=== PATIENT | male | born 2000 | race Caucasian/White ===

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

== ENCOUNTER 2020-04-07 13:00 | Emergency (ER) | payer MEDICAID ==
[~2020-04-07] VITALS: Ht 175.2 cm; Wt 68.0 kg
--- OUTSIDE RECORDS SUMMARY | 2020-04-07 13:05 | XMS REPORT | Continuity of Care Document ---
Author Author [facility] Organization [facility] Address Unknown Phone Unavailable Care Team Providers Care Care Partner Name Role Phone JE GIRON DO PCP Insurance Providers Payer Name Policy Number Subscriber Name Relationship [facility] [id number] Etelvina Hernandez 18 Self / S [place] As Patient Advance Directives Directive Response Recorded Date/Time Advance Directives No 02/09/15 6:00pm Organ Donor No 02/09/15 6:00pm Resuscitation Status Full Code 02/09/15 6:00pm Chief Complaint and Reason for Visit Chief Complaint LACERATION AND FOREIGN BODY R FOOT Reason for Visit Foreign body in right foot Laceration of right foot Problems Medical Problems Problem Onset Date Status Foreign body in right foot Unknown Active Laceration of right foot Unknown Active Medications Medication Dose Route Sig Days/Qty Instructions Order Date Disc ontinued Date Status Levofloxacin 500 Mg PO DAILY 10 Days 02/10/15 Ac tive Social History Social History Problem Response Recorded Date/Sergio e Alcohol Use Denies Use 02/09/2015 6:00pm Recreational Drug Use No 02/09/2015 6:00pm Recent Foreign Travel No 02/09/2015 6:00pm Recent Infectious Disease Exposure No 02/09 6:00pm Hospitalization with Isolation Denies 5 2:50pm Smoking Status Never a Smoker 02/09/2015 6:00pm Do you dip or chew tobacco? No 02/09/2015 6 :00pm Query Response Start Date Stop Date Smoking Status Never a Smoker Hospital Discharge Instructions No hospital discharge instructions. Plan of Care Discharge Date 02/10/15 1:05pm Disposition 30 STILL A PATIENT Instructions/Education Provided Laceration (DC) Forms Provided PDI Surgical Prescriptions See Medications Section Referrals (Unspecified) Today Functional Status No functional status results. Allergies, Adverse Reactions, Alerts Allergen Type Severity Reaction Status Last Updated No Known Drug Allergies Active 0 02/09/15 Immunizations No immunization records. Vital Signs Acute Vital Signs Vital Response Date/Time Temperature (Fahrenheit) 98.1 degrees F (97.6 - 99.5) Temperature (Calculated Celsius) 36.18046 degrees C (36.4 - 37.5) Temperature Source Temporal Pulse Rate (Adolescent 12-19yrs) 76 bpm (56 - 106) O2 Sat by Pulse Oximetry 98 % (88 - 100) Respiratory Rate (Adolescent 12-19yrs) 16 bpm (15 - 20) Blood Pressure / Blood Pressure Systolic (Adolescent 12-19yrs) 102 mm Hg ( 115 - 120) Pain Pain Intensity 5 Height (Feet) 5 feet Height (Inches) 2.00 inches Height (Calculated Centimeters) 157.137887 cm Weight (Pounds) 105 pounds Weight (Calculated Grams) 92465.199 gm Weight (Calculated Kilograms) 47.504016 kilograms Calculated BMI 19.20 Results Laboratory Results Test Name Result Units Flags Reference Collection Date/Time Result Date/Time Comments White Blood Count 5.8 10^3/uL 4.3-11.0 02/09/2015 5:23pm 11/2014 5:30pm Red Blood Count 3.10 10^6/uL L 4.30-5.45 02/09/2015 5:23pm 05/0 11/2014 5:30pm Hemoglobin 9.1 G/DL L 12.4-17.1 02/09/2015 5:23pm 5 5:30pm Hematocrit 27 % L 37-52 02/09/2015 5:23pm 02/09/2015 5:30pm Mean Corpuscular Volume 87 FL 77-95 02/09/2015 5:23p m 02/09/2015 5:30pm Mean Corpuscular Hemoglobin 29 PG 25-34 02/09/2015 5 :23pm 02/09/2015 5:30pm Mean Corpuscular Hemoglobin Concent 34 G/DL 32-3 6 02/09/2015 5:23pm 02/09/2015 5:30pm Red Cell Distribution Width 12.3 % 10.0-14.5 5:23pm 02/09/2015 5:30pm Platelet Count 158 10^3/uL 130-400 02/09/2015 5:23pm 015 5:30pm Mean Platelet Volume 10.6 FL H 7.4-10.4 02/09/2015 5:23pm 02/09/2015 5:30pm Neutrophils (%) (Auto) 52 % 42-75 02/09/2015 5:23pm 02/09/2015 5:30pm Lymphocytes (%) (Auto) 41 % 12-44 02/09/2015 5:23pm 02/09/2015 5:30pm Monocytes (%) (Auto) 6 % 0-12 02/09/2015 5:23pm 0 02/09/2015 5:30pm Eosinophils (%) (Auto) 1 % 0-10 02/09/2015 5:23pm 02/09/2015 5:30pm Basophils (%) (Auto) 0 % 0-10 02/09/2015 5:23pm 0 02/09/2015 5:30pm Neutrophils # (Auto) 3.0 X 10^3 1.8-7.8 02/09/2015 5:23pm 0 02/09/2015 5:30pm Lymphocytes # (Auto) 2.4 X 10^3 1.0-4.0 02/09/2015 5:23pm 0 02/09/2015 5:30pm Monocytes # (Auto) 0.3 X 10^3 0.0-1.0 02/09/2015 5:23pm 11/2014 5:30pm Eosinophils # (Auto) 0.1 10^3/uL 0.0-0.3 02/09/2015 5:23pm 0 02/09/2015 5:30pm Basophils # (Auto) 0.0 10^3/uL 0.0-0.1 02/09/2015 5:23pm 11/2014 5:30pm Procedures Procedure Status Date Provider(s) Repair of laceration completed 02/09/15 MANDY DUMONT MD Encounters Encounter Location Date/Time Discharged Inpatient [facility] 02/09/15 5:15pm Recent Diagnosis Foreign body in right foot Laceration of right foot
--- OUTSIDE RECORDS SUMMARY | 2020-04-07 13:05 | XMS REPORT ---
Author Author Rosendo Dickerson Doctor Organization [facility] Address Unknown Phone Unavailable Care Team Providers Care Electric Hoist Operator Name Role Phone Migration, Doctor Unavailable Unavailable PROBLEMS Type Condition ICD9-CM Code [id number] Code Onset Dates Condition S tatus SNOMED Code Problem Impacted cerumen 380.4 Active 180 95492 Problem Allergic rhinitis due to pollen 477.0 Active 20323500 Problem Routine or child health check V20.2 Active 013400820 ALLERGIES No Information ENCOUNTERS Encounter Location Date Diagnosis [place] [address] [place] [phone] 14 Jan, 2015 [place] [address] [address] [place] [id number] [place] [phone] Jan, [place] [address] [address] [place] [id number] [place] [phone] Jan, IMMUNIZATIONS No Known Immunizations SOCIAL HISTORY Never Assessed REASON FOR VISIT [place] [place] VITAL SIGNS MEDICATIONS Unknown Medications RESULTS No Results PROCEDURES No Known procedures INSTRUCTIONS MEDICATIONS ADMINISTERED No Known Medications
--- OUTSIDE RECORDS SUMMARY | 2020-04-07 13:05 | XMS REPORT | Continuity of Care Document ---
Author Author [facility] Organization [facility] Address Unknown Phone Unavailable Care Team Providers Care Order Expediter Name Role Phone JE GIRON DO PCP Insurance Providers Payer Name Policy Number [facility]scriber [facility] [id number] Etelvina Hernandez 18 Self / S [place] As Patient Advance Directives Directive Response Recorded Date/Time Advance Directives No 02/09/15 6:00pm Organ Donor No 02/09/15 6:00pm Resuscitation Status Full Code 02/09/15 6:00pm Problems Medical Problems Problem Onset Date Status [...] No hospital discharge instructions. Plan of Care No plan of care. Functional Status No functional status results. Allergies, Adverse Reactions, Alerts Allergen Type Severity Reaction Status Last Updated No Known Drug Allergies Active 0 02/09/15 Immunizations No immunization records. Vital Signs Acute Vital Signs Vital Response Date/Time Temperature (Fahrenheit) 98.1 degrees F (97.6 - 99.5) Temperature (Calculated Celsius) 36.88374 degrees C (36.4 - 37.5) Temperature Source Temporal Pulse Rate (Adolescent 12-19yrs) 76 bpm (56 - 106) O2 Sat by Pulse Oximetry 98 % (88 - 100) Respiratory Rate (Adolescent 12-19yrs) 16 bpm (15 - 20) Blood Pressure / Blood Pressure Systolic (Adolescent 12-yrs) 102 mm Hg ( 115 - 120) Pain Pain Intensity 5 Height (Feet) 5 feet Height (Inches) 2.00 inches Height (Calculated Centimeters) 157.715968 cm Weight (Pounds) 105 pounds Weight (Calculated Grams) 64804.199 gm Weight (Calculated Kilograms) 47.098973 kilograms Calculated BMI 19.20 Results Laboratory Results [...] MANDY DUMONT MD Encounters Encounter Location Date/Time Departed Emergency Room Via [facility] 02/09 4:47pm Recent Diagnosis
--- OUTSIDE RECORDS SUMMARY | 2020-04-07 13:05 | XMS REPORT ---
Author Author Rosendo Dickerson Doctor Organization [facility] Address Unknown Phone Unavailable Care Team Providers Care Tare Worker Name Role Phone Migration, Doctor Unavailable Unavailable PROBLEMS Type Condition ICD9-CM Code [id number] Code Onset Dates Condition S tatus SNOMED Code Problem Impacted cerumen 380.4 Active 180 97039 Problem Allergic rhinitis due to pollen 477.0 Active 07987188 Problem Routine or child health check V20.2 Active 288914220 ALLERGIES No Information ENCOUNTERS Encounter Location Date Diagnosis [place] [address] [place] [phone] Jan, [place] [address] [address] [place] [phone] Jan, [place] [address] [place] [phone] Jan, IMMUNIZATIONS No Known Immunizations SOCIAL HISTORY Never Assessed REASON FOR VISIT EMR-[facility] PLAN OF CARE VITAL SIGNS MEDICATIONS Medication Instructions Dosage Frequency Start Date End Date Duration S tatus Debrox 6.5 % 3 drop by Otic route 2 times per day for 5 da y(s) Jan, Active Claritin 10 mg 1 tablet by Oral route 1 time per day Jan, Active RESULTS No Results PROCEDURES No Known procedures INSTRUCTIONS MEDICATIONS ADMINISTERED No Known Medications
--- OUTSIDE RECORDS SUMMARY | 2020-04-07 13:06 | XMS REPORT | Continuity of Care Document ---
Author Author [facility] Organization [facility] Address Unknown Phone Unavailable Care Team Providers Care Clinical Pharmacist Name Role Phone JE GIRON DO PCP Insurance Providers Payer Name Policy Number Subscriber Name Relationship [facility] [id number] Etelvina Hernandez 18 Self / S [place] As Patient Advance Directives Directive Response Recorded Date/Time Advance Directives No 08/09/16 8:47pm Organ Donor No 08/09/16 8:47pm Resuscitation Status Full Code 08/09/16 8:47pm Chief Complaint and Reason for Visit Chief Complaint Upper Extremity Reason for Visit [id number] Problems Active Problems Medical Problem Onset Date Status Foreign body in right foot Unknown Acute Fracture of thumb, right, closed Unknown Acute Laceration of right foot Unknown Acute Medications Current Home Medications Medication Dose Units Route Directions Days/Qty Instructions Star t Date Levofloxacin 500 Mg 500 Mg Oral Daily 10 Days 12/23 Hydrocodone/Acetaminophen 1 Each 1 Each Oral Every 4HRS as n eeded for Pain 20 08/09/16 Social History Social History Problem Response Recorded Date/Sergio e Alcohol Use Denies Use 05/10/2015 7:45am Recreational Drug Use No 05/10/2015 7:45am Recent Foreign Travel No 08/09/2016 8:47pm Recent Infectious Disease Exposure No 08/09 8:47pm Hospitalization with Isolation Denies 6 8:47pm Smoking Status Never a Smoker 08/09/2016 8:47pm Do you dip or chew tobacco? No 02/09/2015 6 :00pm Recent Hopitalizations No 08/09/2016 8:47pm Hospitalization with Isolation Denies 6 8:47pm Query Response Start Date Stop Date Smoking Status Never a Smoker Hospital Discharge Instructions No hospital discharge instructions. Plan of Care Discharge Date 08/09/16 10:08pm Disposition 01 HOME, SELF-CARE Condition at Discharge Improved Instructions/Education Provided Splint Care (ED) Thumb Fracture (ED) Forms Provided Local Medical Staff Listing Prescriptions See Medication Section Referrals EASTON SEE MD - JE GIRON DO - Primary Care Physician EJ GIRON DO - Primary Care Physician DARLYN WRIGHT MD - Additional Instructions/Education All discharge instru ctions reviewed with patient and/or family. Voiced understanding. Medications as in instructed. No ibuprofen or Aleve. Elevate the right hand on pillows. Ice pack the next 2-3 days intermittently. Left arm activities only until released by Dr. See. Follow-up with Dr. See as an outpatient in the next 7 days. Call first thing tomorrow morning for appointment time. Return to the emergency department for worsened pain, discoloration, numbness, pain from the splint, or any other concerns. Functional Status No functional status results. Allergies, Adverse Reactions, Alerts No known allergies. Immunizations No immunization records. Vital Signs Acute Vital Signs Vital Response Date/Time Temperature (Fahrenheit) 97.8 degrees F (97.6 - 99.5) 2015 8:47pm Temperature (Calculated Celsius) 36.53637 degrees C (36.4 - 37.5) 08/09/2016 8:47pm Temperature Source Temporal 08/09/2016 8:47pm Pulse Rate (Adolescent 12-19yrs) 47 bpm (56 - 106) 016 8:47pm Respiratory Rate (Adolescent 12-19yrs) 20 bpm (15 - 20) 1 8:47pm Blood Pressure / Blood Pressure Systolic (Adolescent 12-19yrs) 126 mm Hg ( 115 - 120) 08/09/2016 8:47pm Pain Numeric Pain Scale 1 08/09/2016 9:47pm Height (Feet) 5 feet 08/09/2016 8:47pm Height (Inches) 8 inches 08/09/2016 8:47pm Height (Calculated Centimeters) 172.042463 cm 08/09/20 16 8:47pm Weight (Pounds) 130 pounds 08/09/2016 8:47pm Weight (Calculated Kilograms) 58.559332 kilograms 08/09/2016 8:47pm Calculated BMI 19.76 08/09/2016 8:47pm Results No known relevant diagnostic tests, laboratory data and/or discharge summary. Procedures No known history of procedures. Encounters Encounter Location Arrival/Admit Date Discharge/Depart Date Attending Provider Departed Emergency Room [facility] 08/09/16 8:42pm 08/09/16 10:08pm SKYLAR SHAHID Recent Diagnosis
--- OUTSIDE RECORDS SUMMARY | 2020-04-07 13:06 | XMS REPORT | Continuity of Care Document ---
Author Author [facility] Organization [facility] Address Unknown Phone Unavailable Care Team Providers Care Ruby On Rails Web Developer Name Role Phone JE GIRON DO PCP Insurance Providers Payer Name Policy Number Subscriber Name Relationship [facility] [id number] Etelvina Hernandez 18 Self / S [place] [...] 02/09 6:00pm Hospitalization with Isolation Denies 5 12:39pm Smoking Status Never a Smoker 02/09/2015 6:00pm [...] F (97.6 - 99.5) Temperature (Calculated Celsius) 36.11637 degrees C (36.4 - 37.5) Temperature Source [...] Height (Inches) 2.00 inches Height (Calculated Centimeters) 157.971742 cm Weight (Pounds) 105 pounds Weight (Calculated Grams) 35575.199 gm Weight (Calculated Kilograms) 47.925630 kilograms Calculated BMI 19.20 Results Laboratory Results [...] MANDY DUMONT MD Encounters Encounter Location Date/Time Registered Surgical Day Care [facility] [address] 02/09/15 5:15pm Recent Diagnosis Foreign body in right foot Laceration of right foot
--- OUTSIDE RECORDS SUMMARY | 2020-04-07 13:06 | XMS REPORT | Continuity of Care Document ---
Author Author [facility] Organization [facility] Address Unknown Phone Unavailable Care Team Providers Care Incising Machine Operator Name Role Phone JE GIRON DO PCP Insurance Providers Payer Name Policy Number Subscriber Name Relationship [facility] [id number] Etelvina Hernandez 18 Self / S [place] As Patient Advance Directives Directive Response Recorded Date/Time Advance Directives No 05/10/15 7:45am Organ Donor No 05/10/15 7:45am Resuscitation Status Full Code 05/10/15 7:45am Problems Medical Problems Problem Onset Date Status [...] No 05/10/2015 7:45am Recent Foreign Travel No 05/10/2015 7:45am Hospitalization with Isolation Denies 5 3:31pm Smoking Status Never a Smoker 05/10/2015 7:45am Do you dip or chew tobacco? No [...] Vital Signs Vital Response Date/Time Temperature (Fahrenheit) 97.3 degrees F (97.6 - 99.5) Temperature (Calculated Celsius) 36.68185 degrees C (36.4 - 37.5) Temperature Source Temporal Pulse Rate (adult) 55 bpm (60 - 90) Respiratory Rate 16 bpm (12 - 24) O2 Sat by Pulse Oximetry 100 % (88 - 100) Blood Pressure 104/50 mm Hg Pain Pain Intensity 0 Height (Feet) 5 feet Height (Inches) 2.00 inches Height (Calculated Centimeters) 157.353945 cm Weight (Pounds) 102 pounds Weight (Ounces) 0.0 oz Weight (Calculated Grams) 73439.422 gm Weight (Calculated Kilograms) 46.029285 kilograms Calculated BMI 16.97 Results No known relevant diagnostic tests, laboratory data and/or discharge summary. Procedures Procedure Status Date Provider(s) Removal of foreign body completed 05/10/15 YOHANNES DUMONT MD Encounters Encounter Location Date/Time Registered Surgical Day Care [facility] 05/10/15 6:31am Registered Clinic [facility] 05/09/15 5:50am Registered Clinic [facility] 04/24/15 2:35pm
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
[2020-04-07 13:27] LABS: BILIRUBIN,URINE NEGATIVE (NEGATIVE); CLARITY,URINE CLEAR; COLOR,URINE YELLOW; GLUCOSE, URINE (UA) NEGATIVE (NEGATIVE); KETONES,URINE TRACE (NEGATIVE); LEUKOCYTE ESTERASE ,URINE NEGATIVE (NEGATIVE); NITRITE,URINE NEGATIVE (NEGATIVE); PH,URINE 7.5 (5-9); PROTEIN,URINE 1+ (NEGATIVE)
[2020-04-07] MEDS ORDERED: LACTATED RINGERS 1,000 ML IV ONE (13:27)
[2020-04-07] MEDS ORDERED: ONDANSETRON 4 MG/2 ML (SDV) Z0FRAN IVP ONE (13:30)
[2020-04-07 13:35] LABS: BACTERIA,URINE FEW /HPF; SQUAMOUS EPITHELIAL CELL,UR RARE /HPF; WBC,URINE 0-2 /HPF
[2020-04-07 13:36] LABS: AMORPHOUS SEDIMENT,UR FEW AMOR PHOSPHATE /LPF
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
[2020-04-07 14:04] LABS: BASOPHILS % (AUTO) 0 % (0-10); EOSINOPHILS # (AUTO) 0.1 10^3/uL (0.0-0.3); EOSINOPHILS % (AUTO) 1 % (0-10); HEMATOCRIT 42 % (40-54); HEMOGLOBIN 15.2 G/DL (13.3-17.7); LYMPHOCYTES # (AUTO) 0.5 X 10^3 (1.0-4.0); LYMPHOCYTES % (AUTO) 4 % (12-44); MEAN CORPUSCULAR HEMOGLOBIN 33 PG (25-34); MEAN CORPUSCULAR HGB CONC 36 G/DL (32-36); MEAN CORPUSCULAR VOLUME 92 FL (80-99); MEAN PLATELET VOLUME 10.4 FL (7.4-10.4); MONOCYTES # (AUTO) 0.7 X 10^3 (0.0-1.0); MONOCYTES % (AUTO) 7 % (0-12); NEUTROPHILS # (AUTO) 9.1 X 10^3 (1.8-7.8); NEUTROPHILS % (AUTO) 89 % (42-75); PLATELET COUNT 155 10^3/uL (130-400); RED CELL DISTRIBUTION WIDTH 12.4 % (10.0-14.5); WHITE BLOOD COUNT 10.2 10^3/uL (4.3-11.0)
[2020-04-07 14:13] LABS: ALBUMIN 4.8 GM/DL (3.2-4.5); CHLORIDE 105 MMOL/L (98-107); POTASSIUM 3.7 MMOL/L (3.6-5.0); SODIUM 141 MMOL/L (135-145)
[2020-04-07 14:14] LABS: CALCIUM 9.9 MG/DL (8.5-10.1)
[2020-04-07 14:16] LABS: GLUCOSE 87 MG/DL (70-105); TOTAL PROTEIN 7.5 GM/DL (6.4-8.2)
[2020-04-07 14:17] LABS: BILIRUBIN,TOTAL 2.4 MG/DL (0.1-1.0); CARBON DIOXIDE 25 MMOL/L (21-32)
[2020-04-07 14:19] LABS: ALKALINE PHOSPHATASE 71 U/L (40-136); CREATININE SERUM 0.81 MG/DL (0.60-1.30); GFR ESTIMATED > 60
[2020-04-07 14:20] LABS: BUN/CREATININE RATIO 11
[2020-04-07 14:22] LABS: ALANINE AMINOTRANSFERASE 19 U/L (0-55); MAGNESIUM 1.9 MG/DL (1.6-2.4)
[2020-04-07 14:32] LABS: AMPHETAMINE SCREEN, URINE NEGATIVE (NEGATIVE); BARBITURATE SCREEN URINE NEGATIVE (NEGATIVE); BENZODIAZEPINES SCREEN URINE NEGATIVE (NEGATIVE); CANNABINOID SCREEN, URINE POSITIVE (NEGATIVE); COCAINE SCREEN URINE NEGATIVE (NEGATIVE); METHADONE STAT NEGATIVE (NEGATIVE); METHAMPHETAMINE SCREEN URINE S NEGATIVE (NEGATIVE); OPIATE SCREEN URINE NEGATIVE (NEGATIVE); OXYCODONE STAT NEGATIVE (NEGATIVE); PROPOXYPHENE STAT NEGATIVE (NEGATIVE); TRICYCLIC ANTIDEPRESSANTS SCRE NEGATIVE (NEGATIVE)
[2020-04-07 14:34] LABS: EOSINOPHILS % (MANUAL) 1 %; LYMPHOCYTES % (MANUAL) 4 %; MONOCYTES % (MANUAL) 9 %; NEUTROPHILS % (MANUAL) 86 %; RBC MORPH NORMAL
== END 2020-04-07 15:23 | disposition home or self-care (01) ==
LOC: EDUNIT# 13:00 → MERGE 13:02 → ER 13:02
DX: M54.5 Low back pain (principal); M62.81 Muscle weakness (generalized)
CPT/HCPCS: 80053; 80306; 81000; 83735; 85007; 85027; 99282; G0480; 36415; 80320

== ENCOUNTER 2021-12-13 17:52 | Emergency (ER) | payer MEDICAID ==
[~2021-12-13] VITALS: Ht 177 cm; Wt 68.0 kg
[2021-12-13] MEDS ORDERED: ceFAZolin INJECTION 1,000 MG VIAL IV ONE (18:15)
[2021-12-13] MEDS ORDERED: LIDOCAINE 2% VISCOUS 15 ML UDC PO ONE (18:15)
[2021-12-13] MEDS ORDERED: fentaNYL INJ 100 MCG/2 ML AMP IVP ONE ×2 (18:15→19:45)
[2021-12-13] MEDS ORDERED: fentaNYL INJ 100 MCG/2 ML AMP ONE (18:16)
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
[2021-12-13] MEDS ORDERED: NS (IVPB) 100 ML ONE (18:33)
[2021-12-13 18:46] LABS: HEMATOCRIT 42 % (40-54); HEMOGLOBIN 14.8 g/dL (13.3-17.7); MEAN CORPUSCULAR HEMOGLOBIN 33 pg (25-34); MEAN CORPUSCULAR HGB CONC 36 g/dL (32-36); MEAN CORPUSCULAR VOLUME 92 fL (80-99); MEAN PLATELET VOLUME 11.1 fL (9.0-12.2); PLATELET COUNT 157 10^3/uL (130-400)
[2021-12-13 18:50] LABS: ALBUMIN 4.7 GM/DL (3.2-4.5); CHLORIDE 103 MMOL/L (98-107); POTASSIUM 3.4 MMOL/L (3.6-5.0); SODIUM 136 MMOL/L (135-145)
[2021-12-13 18:52] LABS: CALCIUM 9.8 MG/DL (8.5-10.1)
[2021-12-13 18:53] LABS: GLUCOSE 164 MG/DL (70-105); TOTAL PROTEIN 7.3 GM/DL (6.4-8.2)
[2021-12-13 18:54] LABS: CARBON DIOXIDE 20 MMOL/L (21-32)
[2021-12-13 18:56] LABS: ALKALINE PHOSPHATASE 58 U/L (40-136)
[2021-12-13 18:57] LABS: CREATININE SERUM 1.02 MG/DL (0.60-1.30); GFR ESTIMATED 107
[2021-12-13 18:58] LABS: BILIRUBIN,DIRECT 0.6 MG/DL (0.0-0.3); BILIRUBIN,INDIRECT 1.4 MG/DL; BUN/CREATININE RATIO 12
[2021-12-13 18:59] LABS: ALANINE AMINOTRANSFERASE 20 U/L (0-55)
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
[2021-12-13] MEDS ORDERED: HYDR-3817 PO (19:19)
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
[2021-12-13 20:02] LABS: BILIRUBIN,URINE NEGATIVE (NEGATIVE); CLARITY,URINE CLEAR; COLOR,URINE YELLOW; GLUCOSE, URINE (UA) NEGATIVE (NEGATIVE); KETONES,URINE NEGATIVE (NEGATIVE); LEUKOCYTE ESTERASE ,URINE NEGATIVE (NEGATIVE); NITRITE,URINE NEGATIVE (NEGATIVE); PROTEIN,URINE TRACE (NEGATIVE)
[2021-12-13 20:18] LABS: BACTERIA,URINE FEW /HPF; GRANULAR CASTS,URINE RARE /LPF; WBC,URINE RARE /HPF
[2021-12-13 20:40] VITALS: BP 109/53
== END 2021-12-13 20:40 | disposition home or self-care (01) ==
LOC: EDUNIT# 17:52 → ER 17:53
DX: S90.415A Abrasion, left lesser toe(s), initial encounter (principal); V89.2XXA Person injured in unspecified motor-vehicle accident, traffic, initial encounter
CPT/HCPCS: 70450; 71045; 72125; 73080; 80048; 80076; 81000; 85027; 86850; 86900; 86901; 87088; 93041; 99284; A6223; G0480; 36415; 80320